=== PATIENT | male | born 1955 | race Caucasian/White ===

== ENCOUNTER 2024-03-10 14:06 | Emergency (ER) | payer SELFPAY ==
[~2024-03-10] VITALS: Ht 167.6 cm; Wt 72.7 kg
[~2024-03-10 14:06] MED LIST: COUMADIN 5MG5 MG/TAB PO; LOVENOX 8080 MG/0.8 SQ; LOVENOX120 MG/0.8 SQ; PRINIVIL10 MG PO; TESSALON P100 MG/CAP PO; WALKER MC
[2024-03-10 14:10] VITALS: TEMP 89.3
[2024-03-10] MEDS ORDERED: Lisinopril 10 MG TAB PO ONE (16:30)
[2024-03-10 17:10] VITALS: BP 168/100; PULSE 62
== END 2024-03-10 17:10 | disposition home or self-care (01) ==
LOC: COL.ER 14:06
DX: S09.90XA Unspecified injury of head, initial encounter (principal); S00.01XA Abrasion of scalp, initial encounter; W19.XXXA Unspecified fall, initial encounter

== ENCOUNTER 2024-05-22 16:55 | Emergency (ER) | payer MEDICARE, MEDICAID ==
[~2024-05-22] VITALS: Ht 167.6 cm; Wt 75.0 kg
[2024-05-22 17:03] VITALS: TEMP 97.7
[2024-05-22 18:11] LABS: BASO % 1.1 % (0.0-2.0); EOS % 0.5 % (0.0-4.0); GRAN # 2.4 K/mm3 (1.4-6.5); GRAN % 65.1 % (42.2-75.2); HEMATOCRIT 36.4 % (42.0-52.0); HEMOGLOBIN 12.8 g/dl (13.5-18.0); LYMPH # 0.9 K/mm3 (1.2-3.4); LYMPH % 23.5 % (20.0-51.0); MEAN CELL VOLUME 85 fl (80.0-100.0); MEAN CORPUSCULAR HEMOGLOBIN 30 pg (27-31); MEAN CORPUSCULAR HGB CONC 35 g/dl (33.0-37.0); MONO # 0.4 K/mm3 (0.1-0.6); MONO % 9.5 % (1.7-9.3); PLATELET COUNT 207 K/mm3 (130-400); RED BLOOD COUNT 4.31 M/mm3 (4.20-5.60); REDCELL DISTRIBUTION WIDTH-CV 12.6 % (11.5-14.5)
[2024-05-22 18:14] LABS: INR 1.7 (0.8-3.0); PROTHROMBIN TIME 17.7 SECONDS (9.7-12.8)
[2024-05-22 18:22] LABS: ALBUMIN 3.9 g/dL (3.4-4.8); ALKALINE PHOSPHATASE 55 U/L (40-150); ANION GAP 12 mmol/L (7-16); AST,SGOT 18 U/L (5-34); BILIRUBIN,TOTAL 0.6 mg/dL (0.2-1.2); BLOOD UREA NITROGEN 16 mg/dL (8-26); CALCIUM 9.1 mg/dL (8.4-10.2); CHLORIDE 102 mEq/L (98-107); CREATININE, serum 0.95 mg/dL (0.72-1.25); GLUCOSE 110 mg/dL (70-99); POTASSIUM 3.1 mEq/L (3.5-4.5); SODIUM 135 mEq/L (136-145); TOTAL PROTEIN 6.3 g/dl (6.2-8.1)
[2024-05-22 18:24] LABS: ALANINE AMINOTRANSFERASE < 6 U/L (0-55)
[2024-05-22] MEDS ORDERED: COUMADIN 77.5 MG/TAB PO (18:41)
[2024-05-22 19:07] VITALS: BP 178/98; PULSE 77
== END 2024-05-22 19:07 | disposition home or self-care (01) ==
LOC: COL.ER 16:55
PROVIDERS: Personal Emergency Response Attendant
DX: R79.89 Other specified abnormal findings of blood chemistry (principal)

== ENCOUNTER 2024-05-24 10:10 | Emergency (ER) | payer MEDICARE, MEDICAID ==
[~2024-05-24] VITALS: Ht 167.6 cm; Wt 75.0 kg
[~2024-05-24 10:10] MED LIST changes: +COUMADIN 77.5 MG/TAB PO
[2024-05-24 10:23] VITALS: TEMP 98.3
[2024-05-24 10:44] LABS: BASO % 1.1 % (0.0-2.0); EOS % 0.3 % (0.0-4.0); GRAN # 2.4 K/mm3 (1.4-6.5); HEMATOCRIT 39.6 % (42.0-52.0); HEMOGLOBIN 13.6 g/dl (13.5-18.0); LYMPH # 0.8 K/mm3 (1.2-3.4); LYMPH % 21.3 % (20.0-51.0); MEAN CELL VOLUME 86 fl (80.0-100.0); MEAN CORPUSCULAR HEMOGLOBIN 30 pg (27-31); MEAN CORPUSCULAR HGB CONC 34 g/dl (33.0-37.0); MEAN PLATELET VOLUME 9.7 fl (7.4-10.4); MONO # 0.4 K/mm3 (0.1-0.6); PLATELET COUNT 208 K/mm3 (130-400); REDCELL DISTRIBUTION WIDTH-CV 12.8 % (11.5-14.5)
[2024-05-24] MEDS ORDERED: LR 1,000 ML IV ONE (10:45)
[2024-05-24] MEDS ORDERED: NORCO 325 MG-51 TAB PO (10:47)
[2024-05-24 10:50] LABS: INR 1.5 (0.8-3.0); PROTHROMBIN TIME 16.5 SECONDS (9.7-12.8)
[2024-05-24 10:53] LABS: PARTIAL THROMBOPLASTIN TIME 40.3 SECONDS (26.0-37.0)
[2024-05-24] MEDS ORDERED: Meclizine 25 MG TAB PO ONE (11:00)
[2024-05-24 11:19] LABS: ALBUMIN 4.1 g/dL (3.4-4.8); ALKALINE PHOSPHATASE 52 U/L (40-150); ANION GAP 12 mmol/L (7-16); AST,SGOT 20 U/L (5-34); BILIRUBIN,TOTAL 0.6 mg/dL (0.2-1.2); BLOOD UREA NITROGEN 16 mg/dL (8-26); C-REACTIVE PROTEIN 0.03 mg/dL (0.00-0.50); CALCIUM 9.3 mg/dL (8.4-10.2); CHLORIDE 104 mEq/L (98-107); CREATININE, serum 0.84 mg/dL (0.72-1.25); GLUCOSE 109 mg/dL (70-99); SODIUM 137 mEq/L (136-145); TOTAL PROTEIN 6.7 g/dl (6.2-8.1)
[2024-05-24 11:20] LABS: ALANINE AMINOTRANSFERASE < 6 U/L (0-55)
[2024-05-24 11:26] LABS: TROPONIN-I 0.027 ng/mL (0.00-0.033)
[2024-05-24] MEDS ORDERED: fentaNYL 50 MCG/ML 2 ML VIAL IV ONE (11:45)
[2024-05-24] MEDS ORDERED: hydrALAZINE 20 MG/ML 1 ML VIAL IV ONE (11:45)
[2024-05-24 14:50] VITALS: BP 169/90; PULSE 95
== END 2024-05-24 14:50 | disposition home or self-care (01) ==
LOC: COL.ER 10:10
PROVIDERS: Family Medicine
DX: G47.00 Insomnia, unspecified (principal); M25.551 Pain in right hip; Z86.711 Personal history of pulmonary embolism; Z79.01 Long term (current) use of anticoagulants
CPT/HCPCS: J0360; J3010; J7120